=== PATIENT | female | born 2000 | race Caucasian/White ===

== ENCOUNTER 2022-08-14 18:15 | Emergency (ER) | payer SELFPAY ==
[2022-08-14] MEDS ORDERED: Acetaminophen 500 MG TAB ONE (19:52)
[2022-08-14] MEDS ORDERED: Lidocaine 5% Patch TD SCH (20:00)
[2022-08-14 21:35] LABS: BHCG - Serum Negative (NEGATIVE); Pregs Control Background? CLEAR/WHITE (CLR/WHITE); Pregs Control Bar Appear? YES (CONTROL BAR)
[2022-08-14] MEDS ORDERED: Ketorolac Tromethamine 30 MG/ML VIAL ONE (21:54)
[2022-08-14] MEDS ORDERED: Bacitracin 1 PK ONE (21:54)
[2022-08-14] MEDS ORDERED: Lidocaine 4% Topical Sol 50 ML BOT ONE (21:58)
[2022-08-14] MEDS ORDERED: Lidocaine 1% (PF) 30 ML VIAL ONE (22:15)
[2022-08-14] MEDS ORDERED: Boostrix 0.5 ML (Tdap) VIAL (>/=7 yrs of age) ONE (22:23)
[2022-08-15] MEDS ORDERED: Transdermal Patch Removal TOP SCH (08:00)
== END 2022-08-14 22:54 | disposition home or self-care (01) ==
LOC: ERS 18:15
DX: L05.01 Pilonidal cyst with abscess (principal)
CPT/HCPCS: 10080; 36415; 72220; 84703; 90471; 90715; 96372; J1885; J2001

== ENCOUNTER 2023-10-09 17:08 | Emergency (ER) | payer SELFPAY ==
[2023-10-09 19:17] LABS: SARS-CoV-2 NAA Rapid Test Not Detected (NotDetected)
== END 2023-10-09 19:38 | disposition home or self-care (01) ==
LOC: ERS 17:08
DX: J20.9 Acute bronchitis, unspecified (principal); Z20.822 Contact with and (suspected) exposure to COVID-19
CPT/HCPCS: 87804; 99284; U0002

== ENCOUNTER 2023-12-05 13:05 | Emergency (ER) | payer SELFPAY | END 2023-12-05 14:30 | disposition home or self-care (01) | LOC: ERS 13:05 | DX: J02.9 Acute pharyngitis, unspecified (principal) | CPT/HCPCS: 99283 ==